=== PATIENT | female | born 1990 | race Caucasian/White ===

== ENCOUNTER 2020-01-12 15:07 | Outpatient (REF) | payer OTHER, SELFPAY | END 2020-01-12 15:08 | disposition home or self-care (01) | LOC: HO.LAB 15:07 | PROVIDERS: Visit Provider Internal Medicine | DX: Z20.828 Contact with and (suspected) exposure to other viral communicable diseases (principal) | CPT/HCPCS: C9803; U0003 ==

== ENCOUNTER → 2022-10-12 09:36 | Outpatient (BNVA) | payer OTHER, SELFPAY | PROVIDERS: PCP Internal Medicine; Visit Provider Physician Assistant Surgical ==

== ENCOUNTER 2022-10-17 10:09 | Outpatient (AMB) | payer OTHER, SELFPAY ==
--- NOTE | 2022-10-17 11:44 | A.OFFVIS_ITS ---
Intake VS Expanded 10/17/22 12:21 Height 5 ft 5.5 in Weight 233 lb 4 oz BMI 38.2 Body Fat 96.2 Body Fat Percentage 41.2 Free Fat Mass 137.2 Visceral Mass 10 Water Mass 98.4 BMR 1,923 Intake Visit Reasons: TV Gastric Balloon BMI 38.3 Medication List - Last Reconciled 10/17/22 by Hayden Rojas MD albuterol sulfate 90 mcg/actuation 2 puffs inhalation Q6H PRN calcium carbonate (Tums) 200 mg PO TID gabapentin 300 mg PO BID HPI TV Gastric Balloon BMI 38.3 HPI Details Start time: 11.36am, End time: 12.36pm ?I spent 50 minutes speaking with the patient on the phone plus an additional 10 minutes reviewing and updating records for a total of 60 minutes HPI Comments History of Present Illness Details Previous weight loss efforts: intermittent fasting Wakes up: 10am, Sleeps: 3am, 12pm-4pm Breakfast: 12pm (eggs and duran and toast) Lunch: 4pm (salads) Dinner: 11pm (meat and vegetables) Snacks: 1pm (chips), 12am (granola bar) Exercise: none Fluids: Coffee: none, tea: 1 cup/day, soda: none, ETOH: daily PFSH Medical History (Updated 10/17/22 @ 11:53 by Hayden Rojas MD) Asthma GERD (gastroesophageal reflux disease) PCOS (polycystic ovarian syndrome) Assessment & Plan Assessment & Plan (1) Obesity: Code(s): E66.9 - Obesity, unspecified Plan: 1.? Plan for lap sleeve gastrectomy. If diaphragmatic or ventral hernias are present at time of surgery, these will be repaired laparoscopically as well. Risks and complications were discussed in detail including possible conversion to an open procedure, anastomotic leak, bleeding requiring transfusion, small bowel obstruction, , DVT and pulmonary embolism, cardiac, or pulmonary complications, as chcf complications such as anastomotic ulcer, insufficient weight loss and vitamin deficiencies. I emphasized the importance of close follow-up, adherence to instructions and good communication. 2. Nutritional counseling. A) NON-WORKING DAYS: Start with 2 Isopure protein (buy at [employer], [employer], [employer], [employer]) shakes (HALF scoop EACH in 8oz water) at 1pm-3pm and 4pm-6pm, 1 protein bar (Zone Perfect protein bars, buy at [employer], ?[employer], [employer], or [employer]) at 7pm-9pm, dinner at 10pm (8 forks of protein and 8 forks of salad/vegetables) and one more protein bar after dinner at 12m-2am. B) WORKING DAYS: 2 Isopure shakes (HALF scoop in 8oz water) at 4pm-6pm and 7pm- 9pm, dinner at 10pm (8 forks each as above) and 3 Zone Perfect bars at 1am-3am, 5am-7am and 9am-11am (if you don't sleep at work) Meal to include lean meat (beef, fish, pork, turkey, chicken), or [place] yogurt, or egg whites, or beans with a salad with olive oil and fruits (berries, pears, apples, kiwi). Avoid salt, breads, potatoes, rice, pasta, desserts. 3. Each shake would be drunk slowly, like coffee in a period of 2 hours. 4. Cut each bar in 4 pieces and eat each piece in 30min ?to make each bar last 2 hours. 5. I emphasized the importance of measuring accurately the food portion and measure it when serving the food in plate 6. The meal portions include 10 full-size forks of meat and 10 full-size forks of salad. You always eat the meat portion but you can replace up to 5 forks for salad/vegetables with rice, potatoes or pasta, or a fruit ?if you like. The less you do it the better weight loss will be. 7. One full-size fork is what it can be scooped on the fork without falling aside and not what can be bit with the fork. Use regular forks like those you find in a typical restaurant. 8.? Please send me weight measurements as soon as possible and then once a week. Always include your diet and exercise plan. 9. Start walking outside daily, tracking calories with a goal of 300 calories per day, daily. Goal is to burn 2000 calories per week on active walking. 10. Alternatively purchase a stationary bike, elliptical or treadmill at home that can track calories. Let me know if you do so I can give you an exercise plan. 11.?It is important of avoiding and for at least 18 months postoperatively and has been discussed at the infosession. 12. Goal is to lose at least 1.5-2lbs per week 13. Goal to lose 10% of your weight before surgery, which is about 23lbs. Ultimate weight goal: 210lbs before surgery 14. Please follow the diet plan exactly without any change. If you don't like something about the plan or you feel hungry you need to communicate with me so I can help you revise the plan. You should not change the plan yourself. (2) PCOS (polycystic ovarian syndrome): Code(s): E28.2 - Polycystic ovarian syndrome (3) BMI 38.0-38.9,adult: Code(s): Z68.38 - Body mass index [BMI] 38.0-38.9, adult (4) GERD (gastroesophageal reflux disease): Code(s): K21.9 - Gastro-esophageal reflux disease without esophagitis (5) Asthma: Code(s): J45.909 - Unspecified asthma, uncomplicated Orders: Orders Vitamin B12 and Folate Today E66.9 - Obesity, unspecified, Z68.38 - Body mass index [BMI] 38.0-38.9, adult Comprehensive Met. Panel Today E66.9 - Obesity, unspecified, Z68.38 - Body mass index [BMI] 38.0-38.9, adult C Reactive Protein Today E66.9 - Obesity, unspecified, Z68.38 - Body mass index [BMI] 38.0-38.9, adult Ferritin Today E66.9 - Obesity, unspecified, Z68.38 - Body mass index [BMI] 38.0-38.9, adult Hemoglobin A1c Today E66.9 - Obesity, unspecified, Z68.38 - Body mass index [BMI] 38.0-38.9, adult Insulin Today E66.9 - Obesity, unspecified, Z68.38 - Body mass index [BMI] 38.0- 38.9, adult IRON PROFILE Today E66.9 - Obesity, unspecified, Z68.38 - Body mass index [BMI] 38.0-38.9, adult Lipid Panel Today E66.9 - Obesity, unspecified, Z68.38 - Body mass index [BMI] 38.0-38.9, adult PTHI Today E66.9 - Obesity, unspecified, Z68.38 - Body mass index [BMI] 38.0- 38.9, adult TSH reflex Free T4 Today E66.9 - Obesity, unspecified, Z68.38 - Body mass index [BMI] 38.0-38.9, adult Vitamin A Today E66.9 - Obesity, unspecified, Z68.38 - Body mass index [BMI] 38.0-38.9, adult Vitamin B1 Today E66.9 - Obesity, unspecified, Z68.38 - Body mass index [BMI] 38.0-38.9, adult Vitamin D 25-OH Total Today E66.9 - Obesity, unspecified, Z68.38 - Body mass index [BMI] 38.0-38.9, adult Zinc Today E66.9 - Obesity, unspecified, Z68.38 - Body mass index [BMI] 38.0- 38.9, adult ECG 12 lead EKG Today E66.9 - Obesity, unspecified, Z68.38 - Body mass index [BMI] 38.0-38.9, adult FL upper GI w air Today E66.9 - Obesity, unspecified, Z68.38 - Body mass index [BMI] 38.0-38.9, adult Complete Blood Count Auto Diff Today E66.9 - Obesity, unspecified, Z68.38 - Body mass index [BMI] 38.0-38.9, adult H Pylori Breath Test Today E66.9 - Obesity, unspecified, Z68.38 - Body mass index [BMI] 38.0-38.9, adult US abdomen comp w elastography Today E66.9 - Obesity, unspecified, Z68.38 - Body mass index [BMI] 38.0-38.9, adult XR chest 2V Today E66.9 - Obesity, unspecified, Z68.38 - Body mass index [BMI] 38.0-38.9, adult Referrals Behavioral Health Referral E66.9 - Obesity, unspecified, Z68.38 - Body mass index [BMI] 38.0-38.9, adult Nutrition/Dietitian Referral E66.9 - Obesity, unspecified, Z68.38 - Body mass index [BMI] 38.0-38.9, adult Telehealth Telehealth Location of provider rendering services: practice address Location of patient: address on file Patient Identification confirmed using: Name, : Yes Telehealth method: voice only Patient verbally consented to treatment: Yes Patient verbally consented to billing insurance company: Yes Patient informed of any privacy concerns related to visit: Yes Minutes spent on Phone/Video with Pt.: 60 Coding Level of Care Code Tele New Pt Level 5 (25202) Diagnoses Obesity E66.9 PCOS (polycystic ovarian syndrome) E28.2 BMI 38.0-38.9,adult Z68.38 GERD (gastroesophageal reflux disease) K21.9 Asthma J45.909 Time Spent (min) 60
[2022-10-17 12:21] VITALS: BMI 38.2
== END 2022-10-17 12:37 | disposition home or self-care (01) ==
LOC: HO.HBS 10:09
PROVIDERS: PCP Internal Medicine; Visit Provider Surgery
DX: E66.9 Obesity, unspecified (principal); Z68.38 Body mass index [BMI] 38.0-38.9, adult
CPT/HCPCS: 99443

== ENCOUNTER → 2022-10-17 10:09 | Outpatient (BNVA) | payer OTHER, SELFPAY | PROVIDERS: PCP Internal Medicine; Visit Provider Surgery ==

== ENCOUNTER 2022-10-30 10:30 | Outpatient (REF) | payer OTHER, SELFPAY ==
[2022-11-02 13:48] LABS: H Pylori Breath Test Positive (Negative)
== END 2022-10-30 10:31 | disposition home or self-care (01) ==
LOC: HO.LNP 10:30
PROVIDERS: Surgery; PCP Internal Medicine; Visit Provider Physician Assistant Surgical
DX: E66.9 Obesity, unspecified (principal); Z68.38 Body mass index [BMI] 38.0-38.9, adult; Z11.3 Encounter for screening for infections with a predominantly sexual mode of transmission
CPT/HCPCS: 83013; 99211

== ENCOUNTER → 2022-11-12 08:10 | Outpatient (BNVA) | payer OTHER, SELFPAY | PROVIDERS: PCP Internal Medicine; Visit Provider Surgery ==